=== PATIENT | male | born 1975 | race Caucasian/White ===

== ENCOUNTER 2019-07-01 19:10 | Emergency (ER) | payer OTHER ==
[~2019-07-01] VITALS: Ht 182.9 cm; Wt 106.6 kg
[2019-07-01 19:40] VITALS: BP 135/84
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
[2019-07-01] MEDS ORDERED: IBUPROFEN 600 MG TABLET PO ONE ×2 (21:42→22:00)
--- NOTE | 2019-07-01 21:43 | NUR ---
PT TAKEN TO CT VIA WHEELCHAIR
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
--- NOTE | 2019-07-01 23:07 | NUR ---
Patient discharged to home in stable condition. Written and verbal after care instructions given. Patient verbalizes understanding of instruction. PT AMBULATORY WITH STEADY GAIT.
== END 2019-07-01 23:10 | disposition home or self-care (01) ==
LOC: ER 19:15
DX: S00.03XA Contusion of scalp, initial encounter (principal); M54.2 Cervicalgia; M79.662 Pain in left lower leg; M54.5 Low back pain; M25.522 Pain in left elbow; F17.200 Nicotine dependence, unspecified, uncomplicated; Y04.0XXA Assault by unarmed brawl or fight, initial encounter; Y93.89 Activity, other specified; Y92.89 Other specified places as the place of occurrence of the external cause; Y99.8 Other external cause status
CPT/HCPCS: 70450-TC; 70486-TC; 72125-TC; 73080-TC; 73590-TC

== ENCOUNTER 2019-10-11 17:55 | Emergency (ER) | payer OTHER ==
[~2019-10-11] VITALS: Ht 182.9 cm; Wt 111.1 kg
[2019-10-11 18:00] VITALS: BP 142/78
--- NOTE | 2019-10-11 18:20 | NUR ---
AT BEDSIDE FOR EVAL.
[2019-10-11] MEDS ORDERED: predniSONE 10 MG TABLET ONE (18:53)
[2019-10-11] MEDS ORDERED: predniSONE 50 MG TABLET PO ONE (19:00)
--- NOTE | 2019-10-11 19:12 | NUR ---
Patient discharged to home in stable condition. Written and verbal after care instructions given. Patient verbalizes understanding of instruction.
== END 2019-10-11 19:12 | disposition home or self-care (01) ==
LOC: ER 17:58
DX: R13.19 Other dysphagia (principal); F12.10 Cannabis abuse, uncomplicated; F17.200 Nicotine dependence, unspecified, uncomplicated; Z90.89 Acquired absence of other organs
CPT/HCPCS: 99283; 99406; J7512

== ENCOUNTER 2020-01-01 19:45 | Emergency (ER) | payer OTHER ==
[~2020-01-01] VITALS: Ht 182.9 cm; Wt 114.8 kg
[2020-01-01 19:50] VITALS: BP 155/89
--- NOTE | 2020-01-01 21:39 | NUR ---
Patient discharged to home in stable condition. Rx and Written and verbal after care instructions given. Patient verbalizes understanding of instruction.
== END 2020-01-01 22:13 | disposition home or self-care (01) ==
LOC: ER 19:53
DX: S00.83XA Contusion of other part of head, initial encounter (principal); F17.200 Nicotine dependence, unspecified, uncomplicated; Z90.89 Acquired absence of other organs; W22.8XXA Striking against or struck by other objects, initial encounter; Y93.89 Activity, other specified; Y92.89 Other specified places as the place of occurrence of the external cause; Y99.8 Other external cause status

== ENCOUNTER 2022-03-20 20:06 | Emergency (ER) | payer OTHER ==
[~2022-03-20] VITALS: Ht 182.9 cm; Wt 116.6 kg
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
[2022-03-20] MEDS ORDERED: IBUPROFEN 600 MG TABLET ONE (21:48)
[2022-03-20] MEDS ORDERED: IBUPROFEN 600 MG TABLET PO ONE (22:00)
[2022-03-20 22:54] VITALS: BP 114/70
--- NOTE | 2022-03-20 22:54 | NUR ---
Patient discharged to home in stable condition. Written and verbal after care instructions given. Patient verbalizes understanding of instruction.
== END 2022-03-20 22:54 | disposition home or self-care (01) ==
LOC: ER 20:06
DX: M54.6 Pain in thoracic spine (principal); M25.532 Pain in left wrist; F17.200 Nicotine dependence, unspecified, uncomplicated; Z60.2 Problems related to living alone
CPT/HCPCS: 71045-TC; 73090-TC; 73100-TC

== ENCOUNTER 2023-02-23 18:49 | Emergency (ER) | payer OTHER ==
[~2023-02-23] VITALS: Ht 182.9 cm; Wt 118.0 kg
[2023-02-23 23:20] VITALS: BP 145/88
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
[2023-02-23] MEDS ORDERED: TDAP [DIPH/PERTUSSIS/TET] 0.5 ML VIAL IM ONE ×2 (23:30→23:38)
[2023-02-23] MEDS ORDERED: AMOX/CLAVULANATE 875 MG TABLET PO ONE (23:30)
[2023-02-23] MEDS ORDERED: AMOX-430 PO (23:32)
[2023-02-23] MEDS ORDERED: AMOX/CLAVULANATE 875 MG TABLET ONE (23:38)
--- NOTE | 2023-02-23 23:56 | NUR ---
Patient discharged to home in stable condition. RX Written and verbal after care instructions given. Patient verbalizes understanding of instruction.
[2023-02-24] MEDS ORDERED: AMOX-430 PO (00:34)
== END 2023-02-23 23:56 | disposition home or self-care (01) ==
LOC: ER 18:56
DX: S61.251A Open bite of left index finger without damage to nail, initial encounter (principal); S61.250A Open bite of right index finger without damage to nail, initial encounter; F17.200 Nicotine dependence, unspecified, uncomplicated; Z60.2 Problems related to living alone; Z90.89 Acquired absence of other organs; Z79.899 Other long term (current) drug therapy; W55.01XA Bitten by cat, initial encounter; Y93.89 Activity, other specified; Y92.89 Other specified places as the place of occurrence of the external cause; Y99.8 Other external cause status
CPT/HCPCS: 90715

== ENCOUNTER 2024-08-19 18:32 | Emergency (ER) | payer OTHER ==
[~2024-08-19] VITALS: Ht 185.4 cm; Wt 117.9 kg
[~2024-08-19 18:32] MED LIST: AMOX-430 PO
[2024-08-19 18:38] VITALS: BP 124/73; TEMP 98.3; O2SAT 99
[2024-08-19 19:07] LABS: BASOPHILS % (AUTO) 0.6 % (0.0-2.0); EOSINOPHILS # (AUTO) 0.2 K/uL (0.0-0.7); EOSINOPHILS % (AUTO) 2.1 % (0.0-6.0); HEMATOCRIT 42 % (39-51); HEMOGLOBIN 14.4 g/dL (13.5-17.5); LYMPHOCYTES # (AUTO) 2.1 K/uL (0.8-4.8); LYMPHOCYTES % (AUTO) 27.3 % (20.0-44.0); MEAN CORPUSCULAR HEMOGLOBIN 31 PG (26.0-33.0); MEAN CORPUSCULAR HGB CONC 34 g/dl (31.0-36.0); MEAN CORPUSCULAR VOLUME 91 fL (80-96); MONOCYTES # (AUTO) 0.7 K/uL (0.1-1.30); MONOCYTES % (AUTO) 8.5 % (2.0-12.0); NEUTROPHILS # (AUTO) 4.7 K/uL (1.8-8.9); NEUTROPHILS % (AUTO) 61.5 % (43.0-81.0); PLATELET COUNT (AUTO) 216 K/uL (150-450); RED BLOOD CELL COUNT(AUTO) 4.64 MIL/uL (4.5-6.0); RED CELL DISTRIBUTION WIDTH 13.5 % (11.5-15.0); WHITE BLOOD COUNT (AUTO) 7.7 K/uL (4.3-11.0)
[2024-08-19 19:15] LABS: CALCIUM, SERUM 8.7 mg/dL (8.5-10.1)
== END 2024-08-19 22:56 | disposition home or self-care (01) ==
LOC: ER 18:36
DX: S00.81XA Abrasion of other part of head, initial encounter (principal); R74.8 Abnormal levels of other serum enzymes; M54.2 Cervicalgia; F17.200 Nicotine dependence, unspecified, uncomplicated; Z90.89 Acquired absence of other organs; Z60.2 Problems related to living alone; W22.8XXA Striking against or struck by other objects, initial encounter; Y93.01 Activity, walking, marching and hiking; Y92.89 Other specified places as the place of occurrence of the external cause; Y99.8 Other external cause status
CPT/HCPCS: 36415; 70450-TC; 80048-TC; 82550-TC; 82553; 85025-TC; 85378-TC

== ENCOUNTER 2024-08-21 19:19 | Emergency (ER) | payer OTHER | END 2024-08-21 21:34 | disposition left against medical advice (07) | LOC: ER 19:29 | DX: Z00.8 Encounter for other general examination (principal); Z53.21 Procedure and treatment not carried out due to patient leaving prior to being seen by health care provider ==

== ENCOUNTER 2024-08-22 12:08 | Emergency (ER) | payer OTHER ==
[~2024-08-22] VITALS: Ht 185.4 cm; Wt 122.5 kg
[2024-08-22 13:22] LABS: BASOPHILS # (AUTO) 0.1 K/uL (0.0-0.2); BASOPHILS % (AUTO) 0.9 % (0.0-2.0); EOSINOPHILS # (AUTO) 0.1 K/uL (0.0-0.7); EOSINOPHILS % (AUTO) 1.6 % (0.0-6.0); HEMATOCRIT 43 % (39-51); HEMOGLOBIN 14.4 g/dL (13.5-17.5); LYMPHOCYTES # (AUTO) 2.1 K/uL (0.8-4.8); LYMPHOCYTES % (AUTO) 27.8 % (20.0-44.0); MEAN CORPUSCULAR HEMOGLOBIN 30 PG (26.0-33.0); MEAN CORPUSCULAR HGB CONC 34 g/dl (31.0-36.0); MEAN CORPUSCULAR VOLUME 90 fL (80-96); MONOCYTES # (AUTO) 0.6 K/uL (0.1-1.30); MONOCYTES % (AUTO) 7.4 % (2.0-12.0); NEUTROPHILS # (AUTO) 4.7 K/uL (1.8-8.9); NEUTROPHILS % (AUTO) 62.3 % (43.0-81.0); PLATELET COUNT (AUTO) 206 K/uL (150-450); RED BLOOD CELL COUNT(AUTO) 4.74 MIL/uL (4.5-6.0); RED CELL DISTRIBUTION WIDTH 13.3 % (11.5-15.0); WHITE BLOOD COUNT (AUTO) 7.6 K/uL (4.3-11.0)
[2024-08-22 13:26] LABS: CALCIUM, SERUM 8.8 mg/dL (8.5-10.1); CREATININE 0.9 mg/dL (0.6-1.3); POTASSIUM 4.2 mmol/L (3.5-5.1)
[2024-08-22 13:38] LABS: ALBUMIN 3.8 g/dL (3.4-5.0); BILIRUBIN,TOTAL 0.4 mg/dL (0.2-1.0); TOTAL PROTEIN, SERUM 7.7 g/dL (6.4-8.2)
[2024-08-22 14:05] VITALS: BP 124/88; TEMP 98; O2SAT 99
== END 2024-08-22 14:05 | disposition home or self-care (01) ==
LOC: ER 12:11
DX: R74.8 Abnormal levels of other serum enzymes (principal); F17.200 Nicotine dependence, unspecified, uncomplicated; Z90.89 Acquired absence of other organs; Z60.2 Problems related to living alone
CPT/HCPCS: 36415; 80053-TC; 82550-TC; 82553; 85025-TC